=== PATIENT | male | born 1945 | race Caucasian/White ===

== ENCOUNTER 2017-08-03 09:07 | Emergency (ER) | payer MEDICARE, OTHER | END 2017-08-03 13:13 | disposition home or self-care (01) | LOC: E/R 09:07 | DX: R41.82 Altered mental status, unspecified (principal); T42.6X1A Poisoning by other antiepileptic and sedative-hypnotic drugs, accidental (unintentional), initial encounter; I10 Essential (primary) hypertension; E11.9 Type 2 diabetes mellitus without complications; Z87.891 Personal history of nicotine dependence; Z79.84 Long term (current) use of oral hypoglycemic drugs | CPT/HCPCS: 70450; 82962; 93005; 99284-25 ==